=== PATIENT | female | born 1990 | race Caucasian/White ===

== ENCOUNTER → 2017-09-24 | Outpatient (REF) | payer OTHER | LOC: M SFHCWAGY 08:46 | DX: Z12.4 Encounter for screening for malignant neoplasm of cervix (principal) ==

== ENCOUNTER → 2019-10-02 | Outpatient (CLI) | payer OTHER ==
[2019-10-02 16:13] LABS: HEMATOCRIT 38.2 % (36.0-47.0); HEMOGLOBIN 12.8 g/dl (12.0-15.5); MEAN CORPUSCULAR HEMOGLOBIN 29.3 pg (27.0-33.0); MEAN CORPUSCULAR HGB CONC 33.5 g/dl (32.0-36.5); MEAN CORPUSCULAR VOLUME 87.4 fl (80.0-96.0); PLATELET COUNT, AUTOMATED 261 10^3/uL (150-450); RED BLOOD COUNT 4.37 10^6/uL (4.00-5.40); WHITE BLOOD COUNT 10.1 10^3/uL (4.0-10.0)
[2019-10-02 18:07] LABS: CHLAMYDIA DNA AMPLIFICATION NEGATIVE (NEGATIVE); GC DNA AMPLIFICATION NEGATIVE (NEGATIVE)
[2019-10-02 21:25] LABS: HIV 1&2 SCREEN CENTAUR NEGATIVE (NEGATIVE); RUBELLA IgG QUALITATIVE IMMUNE (IMMUNE)
[2019-10-05 08:51] LABS: HEPATITIS B SURFACE ANTIGEN NEGATIVE (NEGATIVE); HEPATITIS C VIRUS ABY INDEX 0.1 INDEX (<0.8)
== END ==
LOC: M WUC 14:33
PROVIDERS: ATTEND Advanced Practice Midwife
DX: Z34.01 Encounter for supervision of normal first pregnancy, first trimester (principal); Z36.89 Encounter for other specified antenatal screening

== ENCOUNTER → 2019-12-24 | Outpatient (CLI) | payer OTHER ==
[~2019-12-24] MED LIST: ACET-683 PO; IBUP80TA PO; MAGN400C2 PO; PRENTAB9 PO; VALT500T PO
--- NOTE | 2019-12-24 14:51 | REP ---
Clinical: Anatomical evaluation. Comparison: None . Findings: Examination demonstrates a single live intrauterine in transverse (head to maternal right) presentation. motion is identified by technologist. Placenta is noted anterior and grade I without evidence for placenta previa or abruption. Amniotic fluid volume is normal. Cervix measures 3.8 cm in length and appears closed. No evidence for nuchal cord. Gestational age by LMP 19 weeks 2 days with LESTER 05/17/2020 . Gestational age by current measurements 19 weeks 2 days with LESTER 05/17/2020 . FHR equals 147 beats per minute. BPD 4.6 cm 19 weeks 6 days HC 16.6 cm 19 weeks 2 days AC 14.3 cm 19 weeks 5 days FL 3.0 cm 19 weeks 2 days HL 3.1 cm 20 weeks 0 days HC/AC ratio 1.16 Estimated weight 297 grams ( 53rd percentile). Anatomical assessment demonstrates normal structures including cranium, choroid plexus, cavum, cerebellum/posterior fossa, facial features, lungs, four-chamber heart/ventricular outflow tracts, diaphragm, stomach, cord insertion/three-vessel cord, kidneys/bladder, spine, and extremities. Impression: Single live intrauterine in transverse lie demonstrating appropriate estimated growth and weight. Anatomical assessment is complete and normal. No gross abnormalities are identified.
== END ==
LOC: M WHC 10:46
PROVIDERS: ATTEND Advanced Practice Midwife
DX: Z34.02 Encounter for supervision of normal first pregnancy, second trimester (principal); Z3A.19 19 weeks gestation of pregnancy

== ENCOUNTER → 2020-02-22 | Outpatient (REF) | payer OTHER ==
[2020-04-09 23:07] LABS: BASO % 0.4 % (0.0-1.0); EOS # 0.1 10^3/uL (0.0-0.5); EOS % 1.5 % (0.0-3.0); HEMATOCRIT 35.3 % (36.0-47.0); HEMOGLOBIN 11.5 g/dl (12.0-15.5); LYMPH # 1.4 10^3/uL (1.5-5.0); LYMPH % 15.3 % (24.0-44.0); MEAN CORPUSCULAR HEMOGLOBIN 29.8 pg (27.0-33.0); MEAN CORPUSCULAR HGB CONC 32.6 g/dl (32.0-36.5); MEAN CORPUSCULAR VOLUME 91.5 fl (80.0-96.0); MONO # 0.6 10^3/uL (0.0-0.8); MONO % 6.5 % (0.0-5.0); NEUTROPHILS # 6.8 10^3/uL (1.5-8.5); PLATELET COUNT, AUTOMATED 260 10^3/uL (150-450); RED BLOOD COUNT 3.86 10^6/uL (4.00-5.40); WHITE BLOOD COUNT 8.9 10^3/uL (4.0-10.0)
== END ==
LOC: M SFHCWAGY 12:16
PROVIDERS: ATTEND Advanced Practice Midwife
DX: Z34.02 Encounter for supervision of normal first pregnancy, second trimester (principal)
CPT/HCPCS: 36415; 82950; 85025; 86850; 86900; 86901; J2790

== ENCOUNTER → 2020-04-20 | Outpatient (REF) | payer OTHER | LOC: M SFHCWAGY 09:59 | PROVIDERS: ATTEND Obstetrics & Gynecology | DX: Z3A.36 36 weeks gestation of pregnancy (principal) ==

== ENCOUNTER 2020-05-22 08:37 | Inpatient (IN) | payer OTHER ==
[~2020-05-22] VITALS: Ht 170.2 cm; Wt 69.7 kg
[2020-05-22] VITALS (42 sets, daily range): BP systolic 78–157; BP diastolic 52–74
[2020-05-22] MEDS ORDERED: VALT500T PO (09:47)
[2020-05-22] MEDS ORDERED: PRENTAB9 PO (09:47)
[2020-05-22] MEDS ORDERED: MAGN400C2 PO (09:47)
[2020-05-22 10:26] LABS: HEMATOCRIT 38.8 % (36.0-47.0); HEMOGLOBIN 12.1 g/dl (12.0-15.5); MEAN CORPUSCULAR HEMOGLOBIN 27.2 pg (27.0-33.0); MEAN CORPUSCULAR HGB CONC 31.2 g/dl (32.0-36.5); MEAN CORPUSCULAR VOLUME 87.2 fl (80.0-96.0); PLATELET COUNT, AUTOMATED 255 10^3/uL (150-450); RED BLOOD COUNT 4.45 10^6/uL (4.00-5.40); WHITE BLOOD COUNT 9.3 10^3/uL (4.0-10.0)
[2020-05-22] MEDS ORDERED: LACTATED RINGER'S 1000 ML IV STA (10:45)
[2020-05-22] MEDS ORDERED: LR 1,000 ML IV SCH (10:45)
[2020-05-22] MEDS ORDERED: OXYTOCIN DRIP 30 UNITS in IV 1 EA IV SCH ×2 (10:45→22:08)
--- NOTE | 2020-05-22 11:11 | HPEPDOC ---
Obstetrical History & Physical General Date of Admission May 22, 2020 at 08:37 Primary Care Physician: SCARLET BARGER CNM History of Present Illness Jany is a 29-year-old female who is a at 40.5 weeks gestation with an LESTER of 11/ Chief Complaint: Induction of labor Information Provided By: Patient Age: 29 : 1 Term: 0 Pre-term: 0 Abortions: 0 Livin Care Care: Good Care Dating Final EDC: May 17, 2020 Final EDC by: LMP LMP: Aug 11, 2019 EGA at Admission: 40.5 Antepartum Course Height (inches): 67 Pre- weight (lbs.): 128 Admission Weight (lbs.): 156 Change in Weight (lbs.): 28 Past Medical History Past Obstetrical History : 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: Herpes simplex virus(HSV) (HSV-1-oral) Past Medical History Medical History hyperhidrosis Raynaud's Surgical History: Denies/None Family History Significant Family History: Cancer (malignant neoplasm) Social History Marital Status: Family situation: Spouse/partner home Psychosocial History: Anxiety (does counseling) * Smoker: non-smoker Alcohol: Denies Drugs: denies Abuse Violence Screening Have you been hit/kicked/slapp: No Have you been sexually assault: No Allergies Coded Allergies: Sulfa (Sulfonamide Antibiotics) (Verified Allergy, Unknown, HIVES, 05/22) bupropion (Verified Allergy, Unknown, HIVES, 05/22/20) Medications Scheduled Magnesium Oxide (Magnesium) 400 Mg Capsule, 1 CAP PO DAILY for constipation No.137/Iron/Folic Acd ( Vitamin Tablet) 1 Each Tablet, 1 TAB PO DAILY Valacyclovir HCl (Valtrex) 500 Mg Tablet, 1 TAB PO DAILY Physical Examination Physical Examination GENERAL: Alert and oriented times three. ABDOMEN: Gravid and non-tender to touch. FETUS: Is vertex (VTX) by sterile vaginal examination (SVE), fetus is vertex (VTX) by Aamir. LUNGS: Regular rate. Clear to auscultation (CTA). EXTREMITIES: No edema. No clonus. Deep tendon reflexes (DTRs) + 2. Vital Signs/I&O BP: 131/71; RR: 18; Temperature: 98; HR: 83 Laboratory Data 24H LABS Laboratory Tests 2 05/22/20 09:01: Serology Scanned Report Hepatitis B Testing 05/22/20 10:16: Nucleated Red Blood Cells % (auto) 0.0 CBC/BMP Laboratory Tests 05/22/20 10:16 Urine Culture: No Growth Pertinent Laboratoy Data Blood Type: O- RBC Antibody Screen: Negative HIV: Negative Hepatitis B: Negative Hepatitis C: Negative Rapid Plasma Reagin: Nonreactive Rubella: Immune Chlamydia/Gonorrhea: Negative Group B Streptococcus: Negative Glucose Tolerance Test: 56 Vaginal Examination Dilation: 5 cm Effacement: 100% Station: 0 Presentation: Cephalic presentation Position: Vertex (occiput) Assessment Heart Rate (FHR): 145 Variability: Moderate Accelerations: Positive Decelerations: None Tocometer Contractions: Yes Frequency: irregular Multi-drug resistant Organism: No history of MDRO Assessment/Plan Assessment IUP at 40.5 weeks gestation elective induction of labor GBS negative Category I FHR tracing Plan Admit to labor and delivery. OOB ad segun. Diet: clears. Group B Streptococcus (GBS) negative. Labs and intravenous (IV) per unit protocol. Counseled on Pitocin for induction of labor (IOL). Anesthesia consult per patient's request. Lactated Ringers (LR): Bolus 800 mL prior to epidural, then at 125 mL/hr. Anticipate cervical change and . C-S as appropriate. SCARLET BARGER CNM May 22, 2020 11:10
--- NOTE | 2020-05-22 14:43 | IPNPDOC ---
Obstetrical Progress Note Date of Service May 22, 2020 Subjective Patient reports her contractions are more uncomfortable. Objective Vital Signs Date Time Temp Pulse Resp B/P (MAP) Pulse Ox O2 Delivery O2 Flow Rate FiO2 05/22/20 12:50 87 132/71 (91) 05/22/20 09:02 98.0 16 Assessment Heart Rate (FHR): 140 Variability: Moderate Accelerations: Positive Decelerations: None Heart Rate Tracing: Category I Tocometer Contractions: Yes Frequency: regular Sterile Vaginal Examination Dilation: 5 cm Effacement (%): 100% Station: 0 Postion/Presentation: Cephalic presentation Assessment and Plan Age: 29 : 1 Term: 0 Pre-term: 0 Abortions: 0 Livin EGA at Admission: 40.5 Status: Reassuring Group B Streptococcus: Negative Anticipate: Vaginal Delivery Additional Comments IV Pitocin at 8 mu/min. AROM small amount and clear. SCARLET BARGER CNM May 22, 2020 14:43
[2020-05-22] MEDS ORDERED: FENTANYL 2MCG/ML ROPIVACAINE 0.2% IN 0.9% NACL 100ML IVBAG As Ordered ONE (15:00)
--- NOTE | 2020-05-22 16:51 | IPNPDOC ---
Obstetrical Progress Note Date of Service May 22, 2020 Subjective Patient reports she is comfortable with her epidural but is feeling rectal pressure. Objective Vital Signs Date Time Temp Pulse Resp B/P (MAP) Pulse Ox O2 Delivery O2 Flow Rate FiO2 05/22/20 12:50 87 132/71 (91) 05/22/20 09:02 98.0 16 Assessment Heart Rate (FHR): 135 Variability: Moderate Accelerations: Positive Decelerations: None Heart Rate Tracing: Category I Tocometer Contractions: Yes Frequency: regular Sterile Vaginal Examination Dilation: 8 cm ( 8 to 9 cm) Effacement (%): 100% Station: +1 Postion/Presentation: Cephalic presentation Assessment and Plan Status: Reassuring Anticipate: Vaginal Delivery Additional Comments IV Pitocin increased to 4 mu/min. SCARLET BARGER CNM May 22, 2020 16:51
[2020-05-22] MEDS ORDERED: EPIDURAL COMMENT XX SCH (17:00)
[2020-05-22] MEDS ORDERED: ONDANSETRON 4MG/2ML VIAL IV PRN (17:00)
[2020-05-22] MEDS ORDERED: LACTATED RINGER'S 1000 ML IV PRN (17:00)
[2020-05-22] MEDS ORDERED: FENTANYL/ROPIVACAINE/NACL BAG 100 ML EPIDURAL SCH (17:00)
[2020-05-22] MEDS ORDERED: NALOXONE INJ 0.4MG/1ML VIAL (J2310 PER 1MG) IV PRN (17:00)
[2020-05-22] MEDS ORDERED: EPIDURAL/PCA KEYS XX PRN (17:00)
[2020-05-22] MEDS ORDERED: diphenhydrAMINE 50MG/ML VIAL (J1200) IV PRN (17:00)
[2020-05-22] MEDS ORDERED: ePHEDrine SULFATE 25 MG/5 ML(5MG/ML) SYRINGE IV PRN (17:00)
[2020-05-22] MEDS ORDERED: REFRIGERATOR IV KEYS XX PRN (17:00)
[2020-05-22] MEDS ORDERED: ANUSOL HC CREAM 30GM TOP PRN (22:15)
[2020-05-22] MEDS ORDERED: METHYLERGONOVINE MALEATE 0.2 MG TAB PO PRN (22:15)
[2020-05-22] MEDS ORDERED: LIDOCAINE 1% MDV 20ML VIAL INFIL ONE (22:15)
[2020-05-22] MEDS ORDERED: RHOGAM 300 MCG (1500 IU) INJ (J2790) IM SCH (22:15)
[2020-05-22] MEDS ORDERED: MEASLES,MUMPS,RUBELLA VACCINE INJ (MMR-II) (90707) SC SCH (22:15)
[2020-05-22] MEDS ORDERED: DIBUCAINE 1% OINTMENT 30GM TOP PRN (22:15)
[2020-05-22] MEDS ORDERED: ACETAMINOPHEN TAB 650MG DOSE (2X325MG) PO PRN (22:15)
[2020-05-22] MEDS ORDERED: IBUPROFEN 600MG TAB PO PRN (22:15)
--- NOTE | 2020-05-22 22:29 | DNPDOC ---
[facility] Delivery Note Delivery Note DATE OF DELIVERY: 05/22/20 at 2104 PREDELIVERY DIAGNOSIS: 40-5/7 weeks' gestation. POST DELIVERY DIAGNOSIS: Delivered. PROCEDURE: Spontaneous vaginal delivery. MOTORCYCLE BUILDER: Scarlet Rodrigues CNM, BAMBI ANESTHESIA: epidural. ESTIMATED BLOOD LOSS: 300 mL. FINDINGS: 9 pounds 6 ounces; 4250 grams; female , Score 9/9, 3rd degree perineal laceration, prolonged second stage. DELIVERY SUMMARY: Patient is a 29-year-old female who is now a at 40.5 weeks gestation who presented to L&D for an elective IOL. She received IV Pitocin for induction. Jany requested an epidural for pain management. She progressed to fully dilated at 171 and pushed to a living female in the GUALBERTO position with restitution to LOT. A left compound hand was noted with delivery of head. The anterior shoulder delivered with ease and the corpus immediately followed at 2103. The baby was placed [id number] active and crying. The cord was clamped x2 after 3 minutes and cut by the FOB. The placenta delivered spontaneously and intact at 2111. Uterine hemostasis was achieved via rapid infusion of IV Pitocin and fundal massage. The vagina, perineum and cervix was inspected and she was found to have a 3rd degree laceration. Dr. Strickland was present in the department and repaired the 3rd degree laceration with an O Vicryl and 3.[address]-1. Mom plans to breastfeed. They are naming her Romilly. Both mom and baby are in stable condition. All counts of sponges and in struments are correct. SCARLET RODRIGUES CNM May 22, 2020 22:29
[2020-05-23 00:15] VITALS: BP 109/56
[2020-05-23 05:50] VITALS: BP 92/55
[2020-05-23] MEDS: PRENATAL VITAMINS CHEWABLE TABLET PO SCH (07:27)
[2020-05-23] MEDS: DOCUSATE SODIUM 100 MG CAP PO SCH ×2 (07:27→21:00)
[2020-05-23] MEDS: ACETAMINOPHEN 500 MG TAB PO PRN (07:28)
--- NOTE | 2020-05-23 08:17 | IPNPDOC ---
Progress Note Date of Service: May 23, 2020 Day#: 1 Progress Note SUBJECT: Jenny is a who was induced at 40.5 weeks gestation. She had a prolonged second stage of labor with a that resulted in a 3rd degree laceration. She has been ambulating, voiding spontaneously without issue and tolerating regular diet. Breast feeding but has suck blisters on her nipple and around her nipple. notified to evaluate patient. is very aggressive with nursing. OBJECTIVE: VITAL SIGNS: Within normal limits, afebrile. Alert and oriented times three. Breath sounds clear to auscultation. Abdomen: Fundus firm at U-2. Soft, NTTP. Moderate lochia. Perineum swollen but intact. ASSESSMENT: Day 1 , 3rd degree laceration, macrosomic PLAN: 1. Continue supportive nursing care and pain management. 2. support to see patient today. 3. Patient may shower. 4. Anticipate discharge to home tomorrow. VS, I&O, 24H, Carlosbone Vital Signs/I&O Vital Signs Date Time Temp Pulse Resp B/P (MAP) Pulse Ox O2 Delivery O2 Flow Rate FiO2 05/23/20 05:50 99.0 82 16 92/55 (67) 98 I&O- Last 24 Hours up to 6 AM 05/23/20 06:00 Intake Total 3565.5 ml Output Total 2420 ml Balance 1145.5 ml Laboratory Data 24H LABS Laboratory Tests 2 05/22/20 09:01: Serology Scanned Report Hepatitis B Testing 05/22/20 10:16: Nucleated Red Blood Cells % (auto) 0.0 CBC/BMP Laboratory Tests 05/22/20 10:16 SCARLET BARGER CNM May 23, 2020 08:17
--- NOTE | 2020-05-23 08:24 | IPNPDOC ---
Text Note Date of Service The patient was seen on 05/23/20. NOTE Note for repair after delivery I was called to assess Jany's progress with pushing since it was uncertain if she would be able to deliver vaginally with >2hr of pushing. When I arrived, she had fortunately made immense progress to +2 station and it was immediately obvious that she would be able to deliver with the excellent effort she was giving. I stayed to see if assistance would be needed with repair since it was anticipated that she had a large baby and she had quite a bit of labial swelling. On inspection after delivery, she was noted to have a 3c mll. (see NOHEMI Rodrigues's note for details regarding the delivery of baby and placenta). Patient had epidural but was not fully effective, so 1% lidocaine was injected for good pain relief. The 3mll was repaired end-to-end with 4 figure of 8 sutures using O vicryl with excellent reapproximation of the external anal sphincter and robust repair. I used an overglove before the repair to ensure there was no involvement of the rectal mucosa, and after the 3mll repair, I again assessed to ensure there were no sutures through the rectal mucosa. At that point, the remaining 2mll was repaired in routine fashion with 3-0 vicryl with excellent reapproximation, total hemostasis, good cosmetic effect. We discussed low res idue diet, good hydration to avoid constipation, vaginal rest 6 weeks, follow up in 2 weeks to observe the repair. Angella Strickland MD VS,Christel, I+O VS, Christel I+O Laboratory Tests 05/22/20 10:16 Vital Signs Date Time Temp Pulse Resp B/P (MAP) Pulse Ox O2 Delivery O2 Flow Rate FiO2 05/23/20 05:50 99.0 82 16 92/55 (67) 98 I&O- Last 24 Hours up to 6 AM 05/23/20 06:00 Intake Total 3565.5 ml Output Total 2420 ml Balance 1145.5 ml Angella Strickland MD May 23, 2020 08:24
[2020-05-23] MEDS: IBUPROFEN 800 MG TAB PO PRN (13:34)
[2020-05-23 18:00] VITALS: BP 110/63
[2020-05-24] MEDS: IBUPROFEN 800 MG TAB PO PRN (01:37)
[2020-05-24 05:35] VITALS: BP 116/62
--- NOTE | 2020-05-24 06:40 | IPNPDOC ---
Progress Note Date of Service: May 24, 2020 Day#: 2 Progress Note SUBJECT: Jenny is a who was induced at 40.5 weeks gestation. She had a prolonged second stage of labor with a that resulted in a 3rd degree laceration. She has been ambulating, voiding spontaneously without issue and tolerating regular diet. Breast feeding but has suck blisters on her nipple and around her nipple. saw her yesterday and her latch is improved with more comfort, though is still aggressive with sucking. OBJECTIVE: VITAL SIGNS: Within normal limits, afebrile. General: Alert and oriented times three. Respiratory: Regular rate, no accessory muscle use. Abdomen: Fundus firm at U-2. Soft, NTTP. Extremities: No edema, no calf tenderness. Moderate lochia. Perineum swollen but intact. ASSESSMENT: Day 2 , 3rd degree laceration, macrosomic PLAN: 1. Continue supportive nursing care and pain management. 2. Return to office in 2weeks for laceration check, then at 6 wks . 3. Tylenol and Motrin for pain. 4. Discharge home today, home precautions reviewed including warning signs for mastitis, endometritis, DVT, and depression. Reviewed pelvic rest and return to office in 2 wks for laceration check and then 6 wks . VS, I&O, 24H, Fishbone Vital Signs/I&O Vital Signs Date Time Temp Pulse Resp B/P (MAP) Pulse Ox O2 Delivery O2 Flow Rate FiO2 05/24/20 05:35 97.7 74 16 116/62 (80) 99 Room Air SCARLET BARGER CNM May 24, 2020 06:40
[2020-05-24] MEDS ORDERED: IBUP80TA PO (06:47)
[2020-05-24] MEDS ORDERED: ACET-683 PO (06:47)
[2020-05-24] MEDS: PRENATAL VITAMINS CHEWABLE TABLET PO SCH (07:15)
[2020-05-24] MEDS: DOCUSATE SODIUM 100 MG CAP PO SCH (07:15)
[2020-05-24] MEDS: ACETAMINOPHEN 500 MG TAB PO PRN (07:16)
== END 2020-05-24 13:30 | disposition home or self-care (01) | DRG 768 ==
LOC: M LDI 08:37 → M OBS 23:55
PROVIDERS: ADMIT Advanced Practice Midwife; ATTEND Advanced Practice Midwife
PROC: 10E0XZZ Delivery of Products of Conception, External Approach (ICD-10-PCS; principal; 2020-05-22)
PROC: 0DQR0ZZ Repair Anal Sphincter, Open Approach (ICD-10-PCS; 2020-05-22)
PROC: 0KQM0ZZ Repair Perineum Muscle, Open Approach (ICD-10-PCS; 2020-05-22)
PROC: 3E033VJ Introduction of Other Hormone into Peripheral Vein, Percutaneous Approach (ICD-10-PCS; 2020-05-22)
PROC: 10907ZC Drainage of Amniotic Fluid, Therapeutic from Products of Conception, Via Natural or Artificial Opening (ICD-10-PCS; 2020-05-22)
DX: O48.0 Post-term pregnancy (principal); Z37.0 Single live birth; O70.20 Third degree perineal laceration during delivery, unspecified; Z3A.40 40 weeks gestation of pregnancy; O32.6XX0 Maternal care for compound presentation, not applicable or unspecified; O63.1 Prolonged second stage (of labor); O70.1 Second degree perineal laceration during delivery

== ENCOUNTER → 2020-09-29 | Outpatient (REF) | payer OTHER | LOC: M SFHCWAGY 13:41 | PROVIDERS: ATTEND Advanced Practice Midwife | DX: Z01.419 Encounter for gynecological examination (general) (routine) without abnormal findings (principal) ==

== ENCOUNTER → 2021-07-12 | Outpatient (REF) | LOC: M LABSMTC 09:22 | PROVIDERS: ATTEND Pediatrics | DX: Z11.52 Encounter for screening for COVID-19 (principal) ==

== ENCOUNTER → 2021-10-09 | Outpatient (CLI) | payer OTHER | LOC: M WHC 12:36 | PROVIDERS: ATTEND Obstetrics & Gynecology | DX: O36.80X0 Pregnancy with inconclusive fetal viability, not applicable or unspecified (principal); Z3A.01 Less than 8 weeks gestation of pregnancy ==

== ENCOUNTER → 2021-11-01 | Outpatient (CLI) | payer OTHER ==
[2021-11-01 13:36] LABS: BASO # 0.1 10^3/uL (0.0-0.2); BASO % 0.6 % (0.0-1.0); EOS # 0.1 10^3/uL (0.0-0.5); HEMATOCRIT 42.5 % (36.0-47.0); HEMOGLOBIN 13.8 g/dl (12.0-15.5); LYMPH # 1.6 10^3/uL (1.5-5.0); LYMPH % 18.1 % (24.0-44.0); MEAN CORPUSCULAR HGB CONC 32.5 g/dl (32.0-36.5); MEAN CORPUSCULAR VOLUME 89.3 fl (80.0-96.0); MONO # 0.5 10^3/uL (0.0-0.8); MONO % 6.1 % (2.0-8.0); NEUTROPHILS # 6.6 10^3/uL (1.5-8.5); NEUTROPHILS % 73.9 % (36.0-66.0); PLATELET COUNT, AUTOMATED 270 10^3/uL (150-450); RED BLOOD COUNT 4.76 10^6/uL (4.00-5.40); WHITE BLOOD COUNT 8.9 10^3/uL (4.0-10.0)
[2021-11-01 14:29] LABS: HEPATITIS C VIRUS ABY INDEX 0.1 INDEX (<0.8); HIV 1&2 SCREEN CENTAUR NEGATIVE (NEGATIVE)
[2021-11-01 15:56] LABS: GC DNA AMPLIFICATION NEGATIVE (NEGATIVE)
== END ==
LOC: M PLALAB 10:24
PROVIDERS: ATTEND Advanced Practice Midwife
DX: Z34.81 Encounter for supervision of other normal pregnancy, first trimester (principal)

== ENCOUNTER → 2022-01-03 | Outpatient (CLI) | payer OTHER | LOC: M WHC 11:25 | PROVIDERS: ATTEND Advanced Practice Midwife | DX: O32.1XX0 Maternal care for breech presentation, not applicable or unspecified (principal); Z3A.19 19 weeks gestation of pregnancy ==

== ENCOUNTER → 2022-01-18 | Outpatient (CLI) | payer OTHER, SELFPAY | LOC: M WHC 10:50 | PROVIDERS: ATTEND Advanced Practice Midwife | DX: Z34.82 Encounter for supervision of other normal pregnancy, second trimester (principal); Z3A.21 21 weeks gestation of pregnancy ==

== ENCOUNTER → 2022-03-05 | Outpatient (CLI) | payer OTHER ==
[2022-03-05 13:34] LABS: HEMATOCRIT 36.8 % (36.0-47.0); HEMOGLOBIN 11.8 g/dl (12.0-15.5); MEAN CORPUSCULAR HEMOGLOBIN 29.6 pg (27.0-33.0); MEAN CORPUSCULAR HGB CONC 32.1 g/dl (32.0-36.5); MEAN CORPUSCULAR VOLUME 92.5 fl (80.0-96.0); PLATELET COUNT, AUTOMATED 238 10^3/uL (150-450); RED BLOOD COUNT 3.98 10^6/uL (4.00-5.40); WHITE BLOOD COUNT 8.9 10^3/uL (4.0-10.0)
== END ==
LOC: M PLALAB 09:46
PROVIDERS: ATTEND Advanced Practice Midwife
DX: Z34.82 Encounter for supervision of other normal pregnancy, second trimester (principal); Z36.89 Encounter for other specified antenatal screening
CPT/HCPCS: 36415; 82950; 85027; 86850; 86900; 86901; J2790

== ENCOUNTER → 2022-04-25 | Outpatient (REF) | payer OTHER | LOC: M PLALAB 08:00 | PROVIDERS: ATTEND Advanced Practice Midwife | DX: Z36.85 Encounter for antenatal screening for Streptococcus B (principal) ==

== ENCOUNTER → 2022-05-11 | Outpatient (CLI) | payer OTHER | LOC: M WHC 13:12 | PROVIDERS: ATTEND Advanced Practice Midwife | DX: Z34.83 Encounter for supervision of other normal pregnancy, third trimester (principal); Z3A.37 37 weeks gestation of pregnancy ==

== ENCOUNTER 2022-05-15 13:15 | Outpatient (CLI) | payer OTHER ==
[~2022-05-15] VITALS: Ht 170.2 cm; Wt 72.8 kg
[2022-05-15 13:32] VITALS: BP 127/69
[2022-05-15] MEDS ORDERED: MAGN200T PO (13:39)
[2022-05-15] MEDS ORDERED: BENA25CA4 PO (13:39)
[2022-05-15] MEDS ORDERED: VALT1TAB PO (13:39)
[2022-05-15 14:41] VITALS: BP 118/72
== END 2022-05-15 14:50 | disposition home or self-care (01) ==
LOC: M LDO 13:15
PROVIDERS: ATTEND Specialist
DX: O36.8130 Decreased fetal movements, third trimester, not applicable or unspecified (principal); Z3A.38 38 weeks gestation of pregnancy
CPT/HCPCS: 59025; G0378; G0463

== ENCOUNTER → 2022-11-01 | Outpatient (REF) | payer OTHER ==
[~2022-11-01] MED LIST changes: +BENA25CA4 PO; +MAGN200T PO; +VALT1TAB PO
[2022-11-01 18:31] LABS: BASO # 0.1 10^3/uL (0.0-0.2); BASO % 0.8 % (0.0-1.0); EOS # 0.1 10^3/uL (0.0-0.5); EOS % 2.1 % (0.0-3.0); HEMATOCRIT 40.8 % (36.0-47.0); HEMOGLOBIN 13.2 g/dl (12.0-15.5); HEMOGLOBIN A1c 5.2 % (4.0-6.0); LYMPH # 2.1 10^3/uL (1.5-5.0); LYMPH % 32.8 % (24.0-44.0); MEAN CORPUSCULAR HEMOGLOBIN 29.2 pg (27.0-33.0); MEAN CORPUSCULAR HGB CONC 32.4 g/dl (32.0-36.5); MEAN CORPUSCULAR VOLUME 90.3 fl (80.0-96.0); MONO # 0.4 10^3/uL (0.0-0.8); NEUTROPHILS # 3.6 10^3/uL (1.5-8.5); NEUTROPHILS % 57.1 % (36.0-66.0); PLATELET COUNT, AUTOMATED 236 10^3/uL (150-450); RED BLOOD COUNT 4.52 10^6/uL (4.00-5.40); WHITE BLOOD COUNT 6.3 10^3/uL (4.0-10.0)
[2022-11-01 18:46] LABS: FREE T4 1.18 NG/DL (0.89-1.76); THYROID STIMULATING HORMONE 0.965 uIU/ML (0.55-4.78)
[2022-11-01 18:47] LABS: ALBUMIN 4.1 G/DL (3.2-5.2); ALKALINE PHOSPHATASE 75 U/L (46-116); ALT/SGPT 15 U/L (7.0-40); AST/SGOT < 8 U/L (<34); BILIRUBIN,TOTAL 0.3 MG/DL (0.3-1.2); BLOOD UREA NITROGEN 16 MG/DL (9-23); CALCIUM LEVEL 9.2 MG/DL (8.5-10.1); CARBON DIOXIDE LEVEL 29 MMOL/L (20-31); CHLORIDE LEVEL 105 MMOL/L (98-107); CREATININE FOR GFR 0.65 MG/DL (0.55-1.30); FREE T3 3.3 PG/ML (2.3-4.2); GLOMERULAR FILTRATION RATE > 60.0 (>60); GLUCOSE, FASTING 83 MG/DL (60-100); POTASSIUM SERUM 4.1 MMOL/L (3.5-5.1); SODIUM LEVEL 137 MMOL/L (136-145); TOTAL PROTEIN 6.8 G/DL (5.7-8.2)
[2022-11-01 18:50] LABS: THYROID PEROXIDASE ANTIBODY < 28.0 U/ML (<60.0)
== END ==
LOC: M PLALAB 17:06
PROVIDERS: ATTEND Physician Assistant
DX: R61 Generalized hyperhidrosis (principal)

== ENCOUNTER → 2023-05-27 | Outpatient (REF) | payer OTHER | LOC: M LAB REF 17:18 | PROVIDERS: ATTEND Physician Assistant Medical | DX: J02.9 Acute pharyngitis, unspecified (principal) ==

== ENCOUNTER → 2024-03-05 | Outpatient (REF) | payer OTHER ==
[2024-03-11 13:11] LABS: HPV APTIMA Not Detected (Not Detected)
== END ==
LOC: M PLALAB 15:30
PROVIDERS: ATTEND Advanced Practice Midwife
DX: Z01.419 Encounter for gynecological examination (general) (routine) without abnormal findings (principal); Z11.51 Encounter for screening for human papillomavirus (HPV)
CPT/HCPCS: 87624; G0123

== ENCOUNTER → 2024-07-16 | Outpatient (CLI) | payer OTHER ==
[2024-07-16 18:03] LABS: HEMATOCRIT 37.3 % (36.0-47.0); HEMOGLOBIN 12.5 g/dl (12.0-15.5); MEAN CORPUSCULAR HEMOGLOBIN 29.3 pg (27.0-33.0); MEAN CORPUSCULAR HGB CONC 33.5 g/dl (32.0-36.5); MEAN CORPUSCULAR VOLUME 87.4 fl (80.0-96.0); PLATELET COUNT, AUTOMATED 237 10^3/uL (150-450); RED BLOOD COUNT 4.27 10^6/uL (4.00-5.40); WHITE BLOOD COUNT 8.7 10^3/uL (4.0-10.0)
[2024-07-16 18:36] LABS: FREE T4 1.17 NG/DL (0.89-1.76); THYROID STIMULATING HORMONE 1.08 uIU/ML (0.55-4.78)
[2024-07-16 18:37] LABS: FERRITIN 46.8 NG/ML (7.3-270.7); TOTAL 25(OH) VITAMIN D 74.5 NG/ML (20.0-100.0)
[2024-07-16 18:39] LABS: FOLATE 21.24 NG/ML (>5.4)
[2024-07-16 18:41] LABS: PERCENT SATURATION 21.5 % (13.2-45.0)
== END ==
LOC: M PLALAB 15:30
PROVIDERS: ATTEND Nurse Practitioner Family
DX: R53.83 Other fatigue (principal)

== ENCOUNTER → 2024-07-29 | Outpatient (CLI) | payer OTHER ==
[2024-07-29 18:07] LABS: HEMATOCRIT 37.5 % (36.0-47.0); HEMOGLOBIN 12.5 g/dl (12.0-15.5); MEAN CORPUSCULAR HEMOGLOBIN 29.6 pg (27.0-33.0); MEAN CORPUSCULAR HGB CONC 33.3 g/dl (32.0-36.5); MEAN CORPUSCULAR VOLUME 88.9 fl (80.0-96.0); PLATELET COUNT, AUTOMATED 218 10^3/uL (150-450); RED BLOOD COUNT 4.22 10^6/uL (4.00-5.40); WHITE BLOOD COUNT 5.5 10^3/uL (4.0-10.0)
[2024-07-29 18:45] LABS: HIV 1&2 SCREEN NEGATIVE (NEGATIVE)
[2024-07-29 18:53] LABS: HEPATITIS C VIRUS ABY INDEX < 0.02 INDEX (<0.8)
[2024-07-29 19:51] LABS: GC DNA AMPLIFICATION NEGATIVE (NEGATIVE)
== END ==
LOC: M PLALAB 15:39
PROVIDERS: ATTEND Nurse Practitioner Family
DX: Z34.80 Encounter for supervision of other normal pregnancy, unspecified trimester (principal)

== ENCOUNTER → 2024-07-30 | Outpatient (CLI) | payer OTHER | LOC: M WHC 12:21 | PROVIDERS: ATTEND Nurse Practitioner Family | DX: Z34.81 Encounter for supervision of other normal pregnancy, first trimester (principal); Z3A.16 16 weeks gestation of pregnancy; Z36.87 Encounter for antenatal screening for uncertain dates ==

== ENCOUNTER → 2024-09-09 | Outpatient (CLI) | payer OTHER | LOC: M WHC 13:50 | PROVIDERS: ATTEND Nurse Practitioner Family | DX: Z34.82 Encounter for supervision of other normal pregnancy, second trimester (principal) ==

== ENCOUNTER → 2024-09-16 | Outpatient (CLI) | payer OTHER ==
[2024-09-22 21:38] LABS: ANTI PARVO VIRUS LEVEL IGG 4.6 (<0.9); ANTI PARVO VIRUS LEVEL IgM 0.2 (<0.9)
== END ==
LOC: M PLALAB 15:45
PROVIDERS: ATTEND Nurse Practitioner Family
DX: Z20.828 Contact with and (suspected) exposure to other viral communicable diseases (principal)

== ENCOUNTER 2024-09-22 14:02 | Outpatient (RCR) | payer OTHER | END 2024-10-05 | LOC: M PT 14:02 | PROVIDERS: ATTEND Nurse Practitioner Family | DX: R10.2 Pelvic and perineal pain (principal) ==

== ENCOUNTER → 2024-10-16 | Outpatient (CLI) | payer OTHER ==
[2024-10-16 19:00] LABS: HEMATOCRIT 35.1 % (36.0-47.0); HEMOGLOBIN 11.5 g/dl (12.0-15.5); MEAN CORPUSCULAR HEMOGLOBIN 29.9 pg (27.0-33.0); MEAN CORPUSCULAR HGB CONC 32.8 g/dl (32.0-36.5); MEAN CORPUSCULAR VOLUME 91.4 fl (80.0-96.0); PLATELET COUNT, AUTOMATED 272 10^3/uL (150-450); RED BLOOD COUNT 3.84 10^6/uL (4.00-5.40); WHITE BLOOD COUNT 8.5 10^3/uL (4.0-10.0)
[2024-10-16 19:21] LABS: GLUCOSE CHALLENGE TEST 1 HOUR 135 MG/DL (LESS THAN 140)
[2024-10-16 19:57] LABS: HIV 1&2 SCREEN NEGATIVE (NEGATIVE)
[2024-10-16 20:05] LABS: HEPATITIS C VIRUS ABY INDEX 0.02 INDEX (<0.8)
== END ==
LOC: M PLALAB 14:59
PROVIDERS: ATTEND Advanced Practice Midwife
DX: Z34.82 Encounter for supervision of other normal pregnancy, second trimester (principal)
CPT/HCPCS: 36415; 82950; 85027; 86780; 86803; 86850; 86900; 86901; 87389; J2790

== ENCOUNTER → 2024-10-20 | Outpatient (REF) | payer OTHER ==
[2024-10-20 19:21] LABS: Trichomonas vaginalis (AMP) NOT DETECTED (NEGATIVE)
[2024-10-20 19:45] LABS: GC DNA AMPLIFICATION NEGATIVE (NEGATIVE)
== END ==
LOC: M SFHCWAGY 17:23
PROVIDERS: ATTEND Advanced Practice Midwife
DX: Z34.82 Encounter for supervision of other normal pregnancy, second trimester (principal)

== ENCOUNTER → 2024-10-26 | Outpatient (CLI) | payer OTHER | LOC: M LAB 06:49 | PROVIDERS: ATTEND Advanced Practice Midwife | DX: O99.810 Abnormal glucose complicating pregnancy (principal); Z3A.00 Weeks of gestation of pregnancy not specified ==

== ENCOUNTER → 2024-10-26 | Outpatient (REF) | payer OTHER | LOC: M LAB REF 16:56 | PROVIDERS: ATTEND Physician Assistant Medical | DX: J02.9 Acute pharyngitis, unspecified (principal) ==

== ENCOUNTER 2024-10-29 14:30 | Outpatient (RCR) | payer OTHER | END 2024-11-04 | LOC: M PT 14:30 | PROVIDERS: ATTEND Nurse Practitioner Family | DX: R10.2 Pelvic and perineal pain (principal) ==

== ENCOUNTER 2025-01-20 03:12 | Inpatient (IN) | payer OTHER ==
[2025-01-20] VITALS (11 sets, daily range): BP systolic 82–184; BP diastolic 51–77; O2SAT 97–100
[~2025-01-20] VITALS: Ht 170.2 cm; Wt 77.0 kg
[2025-01-20] MEDS ORDERED: OXYTOCIN 30UNITS IN 0.9% NaCl 500ML IV BAG As Ordered ONE (03:38)
[2025-01-20] MEDS ORDERED: TRANEXAMIC ACID INJection 1,000 MG in NS 100 ML IV PRN (03:45)
[2025-01-20] MEDS ORDERED: METHYLERGONOVINE MALEATE 0.2 MG/ML 1 ML VIAL IM PRN (03:45)
[2025-01-20] MEDS ORDERED: CARBOPROST TROMETHAMINE 250 MCG/ML AMP IM PRN (03:45)
[2025-01-20 04:08] LABS: PLATELET COUNT, AUTOMATED 244 10^3/uL (150-450)
[2025-01-20 04:53] LABS: HIV 1&2 SCREEN NEGATIVE (NEGATIVE)
[2025-01-20] MEDS: OXYTOCIN DRIP 30 UNITS in IV 1 EA IV PRN (05:01)
[2025-01-20] MEDS: LIDOCAINE 1% MDV 20 ML VIAL INFIL PRN (05:01)
[2025-01-20 05:26] LABS: CORD GAS ABE A -3.9; CORD GAS HCO3 A 20.6 MMOL/L; CORD GAS O2 SAT A 88.8 %; CORD GAS PCO2 A 36.3 mmHg; CORD GAS PH A 7.371 UNITS; CORD GAS PO2 A 45.8 mmHg; CORD GAS SBC A 21.1 MMOL/L; CORD GAS TCO2 A 21.7 MMOL/L
[2025-01-20 05:29] LABS: CORD GAS ABE V -6.7; CORD GAS HCO3 V 24.0 MMOL/L; CORD GAS O2 SAT V 17.8 %; CORD GAS PCO2 V 73.4 mmHg; CORD GAS PH V 7.132 UNITS; CORD GAS PO2 V 11.5 mmHg; CORD GAS SBC V 17.4 MMOL/L; CORD GAS TCO2 V 26.2 MMOL/L
[2025-01-20] MEDS ORDERED: IBUPROFEN 600 MG TAB PO PRN (05:50)
[2025-01-20] MEDS ORDERED: CALCIUM CARBONATE 500 MG CHEW U/D PO PRN (05:50)
[2025-01-20] MEDS ORDERED: MOM 30 ML SUSPENSION UDC PO PRN (05:50)
[2025-01-20] MEDS ORDERED: METHYLERGONOVINE MALEATE 0.2 MG TAB PO PRN (05:50)
[2025-01-20] MEDS ORDERED: ACETAMINOPHEN 325 MG TAB PO PRN (05:50)
[2025-01-20] MEDS ORDERED: ANUSOL HC CREAM 30 GM TOP PRN (05:50)
[2025-01-20] MEDS: IBUPROFEN 800 MG TAB PO PRN (06:20)
[2025-01-20] MEDS: PRENATAL VITAMINS CHEWABLE TABLET PO SCH (07:58)
[2025-01-20] MEDS: DIBUCAINE 1% OINTMENT 30 GM TOP PRN (07:59)
[2025-01-20] MEDS: ACETAMINOPHEN 500 MG TAB PO PRN (07:59)
[2025-01-20] MEDS: OXYTOCIN DRIP 30 UNITS in IV 1 EA IV SCH (15:50)
[2025-01-20] MEDS: DOCUSATE SODIUM 100 MG CAPSULE PO PRN (21:08)
[2025-01-21 05:59] VITALS: BP 102/62; O2SAT 99
[2025-01-21] MEDS: BOOSTRIX VACCINE (TETANUS/DIPHTH/ACEL. PERTUSSIS) 0.5 ML SYR IM.IMMUN ONE (08:26)
[2025-01-21] MEDS: RHOGAM 300MCG (1500IU) INJ IM SCH (15:16)
[2025-01-22] MEDS ORDERED: MEASLES,MUMPS,RUBELLA VACCINE INJ (MMR-II) SC.IMMUN ONE (09:00)
== END 2025-01-21 17:00 | disposition home or self-care (01) | DRG 807 ==
LOC: M LDO 03:12 → M LDI 03:34 → M OBS 07:30
PROVIDERS: ADMIT Obstetrics & Gynecology; ATTEND Obstetrics & Gynecology
PROC: 10E0XZZ Delivery of Products of Conception, External Approach (ICD-10-PCS; principal; 2025-01-20)
PROC: 0KQM0ZZ Repair Perineum Muscle, Open Approach (ICD-10-PCS; 2025-01-20)
DX: O48.0 Post-term pregnancy (principal); Z37.0 Single live birth; Z3A.40 40 weeks gestation of pregnancy; Z88.2 Allergy status to sulfonamides; Z88.8 Allergy status to other drugs, medicaments and biological substances; Z79.899 Other long term (current) drug therapy; O70.1 Second degree perineal laceration during delivery

== ENCOUNTER 2025-04-13 12:43 | Outpatient (RCR) | payer OTHER | END 2025-05-07 | LOC: M PT 12:43 | PROVIDERS: ATTEND Advanced Practice Midwife | DX: Z87.59 Personal history of other complications of pregnancy, childbirth and the puerperium (principal); N81.89 Other female genital prolapse ==